=== PATIENT | female | born 1980 | race Caucasian/White ===

== ENCOUNTER → 2018-04-16 09:08 | Outpatient (CLI) | payer BC, SELFPAY ==
[2018-04-16 09:52] LABS: HCG Quantitative /Beta subunit < 2.39 mIU/mL
== END ==
PROVIDERS: Family Provider Obstetrics & Gynecology; Visit Provider Obstetrics & Gynecology Reproductive Endocrinology
DX: Z32.00 Encounter for pregnancy test, result unknown (principal)
CPT/HCPCS: 36415; 84702

== ENCOUNTER → 2018-09-21 09:44 | Outpatient (CLI) | payer BC, SELFPAY ==
[2018-09-21 10:29] LABS: Add Manual Diff / Slide Review NO; Basophils Absolute Auto 100 /uL (0-100); Basophils Percent Auto 0.6 % (0-2); Eosinophils Absolute Auto 200 /uL (0-450); Eosinophils Percent Auto 2.4 % (2-4); Hematocrit 42.6 % (36-46); Hemoglobin 14.4 g/dL (12.0-16.0); Lymphocytes Absolute Auto 2400 /uL (1100-4500); Lymphocytes Percent Auto 30.5 % (25-40); Mean Corpuscular HGB Conc 33.8 % (30-36); Mean Corpuscular Hemoglobin 29.9 PG (26-34); Mean Corpuscular Volume 88.4 fL (80-100); Monocytes Absolute Auto 500 /uL (0-900); Monocytes Percent Auto 6.4 % (3-14); Neutrophils Absolute Auto 4700 /uL (1500-7000); Neutrophils Percent Auto 60.1 % (50-75); Platelet Count 242 X10^3/uL (150-400); Red Blood Cell Count 4.82 X10^6/uL (4.0-5.2); White Blood Cell Count 7.8 X10^3/uL (4.5-11.0)
[2018-09-21 11:12] LABS: Alanine Aminotransferase 88 IU/L (9-52); Albumin 4.9 g/dL (3.5-5.0); Albumin Globulin Ratio 1.7 (1.0-2.8); Alkaline Phosphatase 91 U/L (38-126); Aspartate Aminotransferase 45 IU/L (14-36); BUN Creatinine Ratio 12.9 (6-22); Bilirubin Total 0.5 mg/dL (0.2-1.3); Blood Urea Nitrogen 9 mg/dL (7-17); Calcium 9.6 mg/dL (8.4-10.2); Carbon Dioxide 29 mmol/L (22-32); Chloride 101 mmol/L (98-107); Cholesterol 112 mg/dL (140-199); Estimated Glomerular Filt Rate > 60.0 mL/min (>60); Globulin 2.9 g/dL (1.7-4.1); Glucose 98 mg/dL (70-100); HDL Cholesterol 58 mg/dL (40-60); HEMOLYSIS < 15 (0-50); LDL Cholesterol Calculated 46 mg/dL (<100); Potassium 4.5 mmol/L (3.4-5.1); Sodium 138 mmol/L (137-145); Total Protein 7.8 g/dL (6.3-8.2); Triglycerides 42 mg/dL (35-150)
[2018-09-21 11:31] LABS: TSH w/ Reflex to FT4 1.42 uIU/mL (0.47-4.68)
[2018-09-21 11:32] LABS: Hemoglobin A1C% w Est Avg Glu 5.6 % (4.0-6.0)
== END ==
PROVIDERS: Family Provider Obstetrics & Gynecology; PCP Family Medicine; Visit Provider Family Medicine
DX: N97.9 Female infertility, unspecified (principal); K76.0 Fatty (change of) liver, not elsewhere classified; E78.6 Lipoprotein deficiency; Z83.3 Family history of diabetes mellitus
CPT/HCPCS: 36415; 80053; 80061; 83036; 84443; 85025

== ENCOUNTER → 2018-10-18 12:24 | Outpatient (CLI) | payer BC, SELFPAY ==
[2018-10-18 13:03] LABS: Add Manual Diff / Slide Review NO; Basophils Absolute Auto 0 /uL (0-100); Basophils Percent Auto 0.6 % (0-2); Eosinophils Absolute Auto 100 /uL (0-450); Eosinophils Percent Auto 1.8 % (2-4); Hematocrit 44.8 % (36-46); Hemoglobin 14.6 g/dL (12.0-16.0); Lymphocytes Absolute Auto 2500 /uL (1100-4500); Lymphocytes Percent Auto 31.4 % (25-40); Mean Corpuscular HGB Conc 32.6 % (30-36); Mean Corpuscular Hemoglobin 29.4 PG (26-34); Mean Corpuscular Volume 90.3 fL (80-100); Monocytes Absolute Auto 600 /uL (0-900); Monocytes Percent Auto 7.4 % (3-14); Neutrophils Absolute Auto 4600 /uL (1500-7000); Neutrophils Percent Auto 58.8 % (50-75); Platelet Count 255 X10^3/uL (150-400); Red Blood Cell Count 4.97 X10^6/uL (4.0-5.2); Red Cell Distribution Width 14.2 % (11.6-14.8); White Blood Cell Count 7.9 X10^3/uL (4.5-11.0)
[2018-10-18 13:15] LABS: Alanine Aminotransferase 67 IU/L (9-52); Albumin 4.7 g/dL (3.5-5.0); Albumin Globulin Ratio 1.8 (1.0-2.8); Alkaline Phosphatase 71 U/L (38-126); Aspartate Aminotransferase 36 IU/L (14-36); BUN Creatinine Ratio 15.7 (6-22); Bilirubin Total 0.6 mg/dL (0.2-1.3); Blood Urea Nitrogen 11 mg/dL (7-17); Calcium 9.8 mg/dL (8.4-10.2); Carbon Dioxide 28 mmol/L (22-32); Chloride 100 mmol/L (98-107); Estimated Glomerular Filt Rate > 60.0 mL/min (>60); Globulin 2.6 g/dL (1.7-4.1); Glucose 82 mg/dL (70-100); HEMOLYSIS < 15 (0-50); Potassium 4.4 mmol/L (3.4-5.1); Sodium 138 mmol/L (137-145); Total Protein 7.3 g/dL (6.3-8.2)
== END ==
PROVIDERS: PCP Family Medicine; Visit Provider Hospitalist
DX: R10.9 Unspecified abdominal pain (principal)
CPT/HCPCS: 36415; 80053; 85025

== ENCOUNTER → 2018-10-20 09:06 | Outpatient (CLI) | payer BC, SELFPAY ==
--- NOTE | 2018-10-20 09:08 | DI.US.S_ITS ---
PROCEDURE: US ABDOMEN COMPLETE INDICATIONS: abdominal pain TECHNIQUE: Real-time scanning was performed of the abdominal and retroperitoneal organs, with image documentation. COMPARISON: None. FINDINGS: Liver: The liver is normal in size with a smooth margin. Moderate diffuse hyperechogenicity in the hepatic parenchyma diffusely. No focal mass Gallbladder: The gallbladder contains a 1.4 cm mobile stone. Normal gallbladder wall thickness of 2.0 mm. No pericholecystic fluid or Jensen's sign. Biliary ducts: Intrahepatic bile ducts are non-dilated. Extrahepatic bile duct caliber measures 4.4 mm. Normal is 6-7 mm or less in diameter, or 10 mm or less post-cholecystectomy. Pancreas: Visualized portions of the pancreas are sonographically normal. Spleen: Spleen is normal in size and homogeneous in echotexture. Kidneys: Kidneys are normal in size and echotexture. Right kidney measures 11.1 cm long; left kidney measures 10.4 cm long. No hydronephrosis or nephrolithiasis. No solid masses. Aorta: Visualized aorta is normal in caliber at less than 3 cm. Iliacs: Proximal common iliac arteries are normal in caliber at less than 2.5 cm. IVC: Intrahepatic inferior vena cava is patent. Miscellaneous: No free abdominal fluid. IMPRESSION: 1. Cholelithiasis without sonographic evidence of acute cholecystitis. 2. Moderate hepatic steatosis or other intrinsic liver disease. Correlate with LFTs. Dictated by: Margoth Morel M.D. on 10/20/2018 at 12:26 Approved by: Margoth Morel M.D. on 10/20/2018 at 12:29
== END ==
PROVIDERS: PCP Family Medicine; Visit Provider Hospitalist
DX: R10.9 Unspecified abdominal pain (principal); K80.20 Calculus of gallbladder without cholecystitis without obstruction
CPT/HCPCS: 76700

== ENCOUNTER → 2020-03-21 13:26 | Outpatient (CLI) | payer BC, SELFPAY ==
--- NOTE | 2020-03-21 13:27 | DI.US.S_ITS ---
LIMITED ULTRASOUND OF LEFT BREAST AND AXILLA: 03/21/2020 CLINICAL: Abnormal mammogram. No prior exams were available for comparison. Color flow and real-time ultrasound of the left breast 7-9 o'clock, and axilla regions were performed. Arias scale images of the real-time examination were reviewed. There is a 1.5 cm x 1 cm x 0.4 cm wider than tall oval mass with indistinct, slightly angulated margins in the left breast at 9 o'clock middle depth 2 cm from the nipple. This oval mass is hypoechoic with internal echoes and no posterior acoustic shadowing or enhancement. This correlates with mammography findings. Color flow imaging demonstrates that there is no vascularity present. No significant abnormalities were seen sonographically in the left axilla. IMPRESSION: SUSPICIOUS OF MALIGNANCY The 1.5 cm x 1 cm x 0.4 cm wider than tall oval mass in the left breast is at a low suspicion for malignancy. An ultrasound guided biopsy is recommended. Findings and recommendations were discussed with the patient by Dr. Guaman during today's examination. This exam was interpreted at Station ID: [id number]. Electronically Signed By: Anthony Goss M.D. aty/:03/21/2020 17:15:07 copy to: Adriana Centeno copy to: Awilda Acosta letter sent: Biopsy Required Ultrasound BI-RADS: 4a Low suspicion for malignancy
--- NOTE | 2020-03-21 13:27 | DI.US.S_ITS ---
LIMITED ULTRASOUND OF RIGHT BREAST AND AXILLA: 03/21/2020 CLINICAL: Patient returns for additional imaging over a suspected mass in the right breast. Follow up from addtional views. Comparison is made to exam dated: 03/21/2020 [facility]. Color flow and real-time ultrasound of the right breast 9-10 o'clock, and axilla regions were performed. Arias scale images of the real-time examination were reviewed. There is a 1.4 cm x 1.6 cm x 1 cm wider than tall oval mass with a circumscribed margin in the right breast at 9 o'clock anterior depth 3 cm from the nipple. This oval mass is hypoechoic. This correlates with mammography findings. Color flow imaging demonstrates that there is no vascularity present. No significant abnormalities were seen sonographically in the right axilla. IMPRESSION: PROBABLY BENIGN The 1.4 cm x 1.6 cm x 1 cm wider than tall oval mass in the right breast resembles a fibroadenoma and is probably benign. However, patient is currently undergoing treatment and medications for upcoming in vitro fertilization and anticipated . For this reason, an ultrasound guided right breast biopsy is recommended in lieu of imaging surveillance. Findings and recommendations were discussed with the patient by Dr. Guaman during today's examination. This exam was interpreted at Station ID: [id number]. Electronically Signed By: Anthony Goss M.D. aty/:03/21/2020 17:21:41 copy to: Adriana Centeno copy to: Awilda Acosta letter sent: Biopsy Required Ultrasound BI-RADS: 3 Probably benign
--- NOTE | 2020-03-21 13:27 | DI.MG.S_ITS ---
BILATERAL DIGITAL DIAGNOSTIC MAMMOGRAM 3D/2D: 03/21/2020 CLINICAL: Baseline exam. Rash on breast, prolonged breast tenderness. No prior exams were available for comparison. The tissue of both breasts is heterogeneously dense. This may lower the sensitivity of mammography. There is a 1.6 cm oval equal density mass in the right breast at 9 o'clock anterior depth. There is a 1 cm oval equal density focal asymmetry with an obscured margin in the left breast at 9 o'clock middle depth. No other significant masses or calcifications are seen in either breast. IMPRESSION: INCOMPLETE: NEEDS ADDITIONAL IMAGING EVALUATION The 1.6 cm oval equal density mass in the right breast at 9 o'clock anterior depth resembles a cyst, a solid mass, or a fibroadenoma and is indeterminate. An ultrasound is recommended. The 1 cm oval equal density focal asymmetry in the left breast at 9 o'clock middle depth resembles a cyst or a fibroadenoma and is indeterminate. An ultrasound is recommended. The recommended ultrasound is scheduled to immediately follow this exam. This exam was interpreted at Station ID: [id number]. NOTE: For mammograms, a report in lay terms will be sent to the patient. Approximately 15% of breast malignancies will not be visualized mammographically. In the management of a palpable breast mass, a negative mammogram must not discourage biopsy of a clinically suspicious lesion. Electronically Signed By: Anthony Goss M.D. aty/:03/21/2020 17:11:34 ACR BI-RADS Category 0: Incomplete [id number]
== END ==
PROVIDERS: PCP Family Medicine; Referring Provider Nurse Practitioner; Visit Provider Nurse Practitioner
DX: R92.8 Other abnormal and inconclusive findings on diagnostic imaging of breast (principal); N63.25 Unspecified lump in the left breast, overlapping quadrants; N63.15 Unspecified lump in the right breast, overlapping quadrants; N64.4 Mastodynia; Q83.9 Congenital malformation of breast, unspecified
CPT/HCPCS: 76642; 77066; G0279

== ENCOUNTER → 2020-05-02 09:42 | Outpatient (CLI) | payer BC, SELFPAY ==
--- NOTE | 2020-05-02 | PATH_ITS ---
[facility] Accession Number: [id number] . 01 Material submitted: . PART A: breast - RIGHT BREAST PART B: breast - LEFT BREAST . 01 Clinical history: . BILATERAL BREAST MASS . 02 Diagnosis: A. Right Breast, Core Needle Biopsy: Benign breast tissue. Please see comment. Negative for atypical hyperplasia, in situ and invasive carcinoma. . B. Left Breast, Core Needle Biopsy: Fibroadenoma. Negative for atypical hyperplasia, in situ or invasive carcinoma. . [facility] 05/06/2020 1634 Local . 02 Comment: A. The right breast core needle biopsy shows focally dense fibrous breast stroma with a few admixed adipocytes suggestive of, but not diagnostic for benign hamartoma. . Additional deeper levels were examined on both blocks A and B. . 02 Electronically signed: . Sonal Crisostomo MD, Pathologist NPI- [id number] . 01 Gross description: . A. Received in formalin, labeled R breast, are five fragments of rausch adipose tissue ranging in size from 1.2 x 0.3 x 0.3 cm to 0.3 x 0.2 x 0.2 cm. All five fragments are entirely submitted in cassette A1. B. Received in formalin, labeled L breast, are seven fragments of rausch adipose tissue measuring 0.8 x 0.3 x 0.3 cm to 0.3 x 0.3 x 0.2 cm. All seven fragments are entirely submitted in cassette B1. . Collection date and time is listed as 05/02/2020 at 12:06 p.m. The total fixation time is approximately 20 hours. ([id number]) /FRR 05/03/2020 1515 Local . 02 Pathologist provided ICD-10: D24.2 . 02 CPT . 358080, 185114 Performed at: 01 [facility] [address] [place] [address], [place], [place] [id number] MD Tashi Gomez MD Phone: [phone] Performed at: 02 [facility] [place] [address] [place], [place] [id number] MD Sonal Crisostomo MD Phone: [phone]
--- NOTE | 2020-05-02 | DI.MG.S_ITS ---
BILATERAL DIGITAL DIAGNOSTIC MAMMOGRAM POST-NEEDLE BIOPSY: 05/02/2020 CLINICAL: Bilateral breast mass. Comparison is made to exam dated: 03/21/2020 [facility]. The tissue of both breasts is heterogeneously dense. This may lower the sensitivity of mammography. Biopsy clips are in expected positions. IMPRESSION: Biopsy clips in expected positions. This exam was interpreted at Station ID: [id number]. NOTE: For mammograms, a report in lay terms will be sent to the patient. Approximately 15% of breast malignancies will not be visualized mammographically. In the management of a palpable breast mass, a negative mammogram must not discourage biopsy of a clinically suspicious lesion. Electronically Signed By: Ishan Valencia M.D. fx/:05/02/2020 13:35:58 copy to: Adriana Centeno copy to: Awilda Acosta ACR BI-RADS Category n/a
--- NOTE | 2020-05-02 09:44 | DI.US.S_ITS ---
ULTRASOUND GUIDED BIOPSY RIGHT BREAST USING VACUUM DEVICE WITH POST MAMMOGRAPHIC AND ULTRASOUND IMAGIN05/02/2020 CLINICAL: Right breast mass biopsy. PATIENT CONSENT: Risks (minor bleeding, infection, vasovagal reaction and repeat procedure), benefits and alternatives were explained to the patient and written informed consent was obtained. Correlation is made to exams dated: 05/02/2020 mammogram, 03/21/2020 ultrasound, and 03/21/2020 mammogram - [facility]. An ultrasound guided biopsy using real-time ultrasound was performed for the round mass located in the right breast at 9 o'clock middle depth. This was described on the previous ultrasound report. The skin was prepped in the usual manner. Local anesthetic was administered to the access site. The abnormality was approached from the lateral aspect. A 13 gauge biopsy needle was placed adjacent to the abnormality under ultrasound guidance. Once the needle was documented to be in the correct location, five specimens were obtained using the Mammotome biopsy system. Post procedure mammographic and ultrasound imaging demonstrates the clip at the targeted area. The specimens were sent to the laboratory for pathological analysis. IMPRESSION: ULTRASOUND GUIDED BIOPSY BENIGN Ultrasound guided biopsy of the mass in the right breast middle depth was successful. Pathology indicates benign breast tissue, focal dense fibrous tissue including a few adipocytes suggestive of benign hamartoma. Pathology results are concordant with imaging findings. A follow-up right ultrasound in 6 months is recommended. Results and recommendations will be communicated to the ordering provider's office. This exam was interpreted at Station ID: [id number]. Ishan Morel M.D. fx,krg/:05/07/2020 13:44:25 copy to: Adriana Centeno copy to: Awilda Acosta
--- NOTE | 2020-05-02 09:44 | DI.US.S_ITS ---
ULTRASOUND GUIDED BIOPSY LEFT BREAST USING VACUUM DEVICE WITH POST MAMMOGRAPHIC AND ULTRASOUND IMAGIN05/02/2020 CLINICAL: Left breast mass biopsy. PATIENT CONSENT: Risks (minor bleeding, infection, vasovagal reaction and repeat procedure), benefits and alternatives were explained to the patient and written informed consent was obtained. Correlation is made to exams dated: 05/02/2020 mammogram, 03/21/2020 ultrasound, and 03/21/2020 mammogram - [facility]. An ultrasound guided biopsy using real-time ultrasound was performed for the oval mass located in the left breast at 9 o'clock posterior depth. This was described on the previous ultrasound report. The skin was prepped in the usual manner. Local anesthetic was administered to the access site. The abnormality was approached from the medial aspect. A 13 gauge biopsy needle was placed adjacent to the abnormality under ultrasound guidance. Once the needle was documented to be in the correct location, five specimens were obtained using the Mammotome biopsy system. Post procedure mammographic and ultrasound imaging demonstrates the clip at the targeted area. The specimens were sent to the laboratory for pathological analysis. IMPRESSION: ULTRASOUND GUIDED BIOPSY BENIGN Ultrasound guided biopsy of the mass in the left breast posterior depth was successful. Pathology indicates benign fibroadenoma (FA). Pathology results are concordant with imaging findings. Return to annual mammogram screening schedule for the left breast is recommended. This exam was interpreted at Station ID: [id number]. Ishan Morel M.D. fxkrg/:05/07/2020 18:36:13 copy to: Adriana Centeno copy to: Awilda Acosta
== END ==
PROVIDERS: PCP Family Medicine; Referring Provider Family Medicine; Visit Provider Family Medicine
DX: D24.2 Benign neoplasm of left breast (principal); N63.15 Unspecified lump in the right breast, overlapping quadrants
CPT/HCPCS: 19083; 77066

== ENCOUNTER → 2020-11-05 15:42 | Outpatient (CLI) | payer BC, SELFPAY ==
--- NOTE | 2020-11-05 | DI.RAD.S_ITS ---
PROCEDURE: XR THORACIC SPINE 2V INDICATIONS: CERVICAL, LUMBAR AND THORACIC PAIN TECHNIQUE: 2 views of the thoracic spine were acquired. COMPARISON: None. FINDINGS: Bones: No fractures or dislocations. No suspicious bony lesions. Twelve pairs of ribs are noted, and appear intact where visualized. Soft tissues: No paravertebral stripe thickening. IMPRESSION: No trauma found, source of current thoracic spine pain is not identified Dictated by: Arnoldo Guaman M.D. on 11/05/2020 at 16:13 Approved by: Arnoldo Guaman M.D. on 11/05/2020 at 16:13
--- NOTE | 2020-11-05 | DI.RAD.S_ITS ---
PROCEDURE: XR CERVICAL SPINE 2V OR 3V INDICATIONS: CERVICAL, LUMBAR AND THORACIC PAIN TECHNIQUE: 2 view(s) of the cervical spine were acquired. COMPARISON: None. FINDINGS: Bones: No fractures or dislocations to the T1 level. The lateral masses of C1 appear intact on the odontoid view. No suspicious bony lesions. Mild C5-6 degenerative disc height reduction, without subluxation. Soft tissues: No prevertebral soft tissue swelling. IMPRESSION: Mild degenerative disc disease C5-6 without prior trauma or subluxation. Dictated by: Arnoldo Guaman M.D. on 11/05/2020 at 16:13 Approved by: Arnoldo Guaman M.D. on 11/05/2020 at 16:14
--- NOTE | 2020-11-05 | DI.RAD.S_ITS ---
PROCEDURE: XR LUMBAR SPINE 2-3V INDICATIONS: CERVICAL, LUMBAR AND THORACIC PAIN TECHNIQUE: 3 views of the lumbar spine were acquired. COMPARISON: [facility], , -SPINE 2-3 VIEWS, 06/13/2014, 16:10. FINDINGS: Bones: 5 [id number] vertebrae are present. There is normal bony alignment. No vertebral body compression fractures. No suspicious bony lesions. There is a moderately severe degree of degenerative disc disease at L5-S1 with additional facet osteoarthritis superimposed posteriorly. No subluxation is associated. No prior trauma found. Soft tissues: Overlying bowel gas pattern is normal. No suspicious soft tissue calcifications. IMPRESSION: Moderately severe degenerative disc disease and facet osteoarthritis at L5-S1, but more superiorly the lumbosacral spine appears excellent. There is potential for significant spinal and foraminal stenosis at L5-S1. Dictated by: Arnoldo Guaman M.D. on 11/05/2020 at 17:16 Approved by: Arnoldo Guaman M.D. on 11/05/2020 at 17:17
== END ==
PROVIDERS: PCP Family Medicine; Referring Provider Chiropractor; Visit Provider Chiropractor
DX: M99.01 Segmental and somatic dysfunction of cervical region (principal); M99.02 Segmental and somatic dysfunction of thoracic region; M99.03 Segmental and somatic dysfunction of lumbar region; M99.04 Segmental and somatic dysfunction of sacral region; M99.05 Segmental and somatic dysfunction of pelvic region; M54.5 Low back pain; M50.322 Other cervical disc degeneration at C5-C6 level; M51.37 Other intervertebral disc degeneration, lumbosacral region; M47.817 Spondylosis without myelopathy or radiculopathy, lumbosacral region
CPT/HCPCS: 72040; 72070; 72100

== ENCOUNTER → 2021-03-31 11:17 | Outpatient (CLI) | payer BC, SELFPAY ==
--- NOTE | 2021-03-31 11:18 | DI.US.S_ITS ---
PROCEDURE: US PELVIC COMPLETE INDICATIONS: PELVIC PAIN TECHNIQUE: Real-time scanning was performed of the pelvic organs, with image documentation. Additional endovaginal scanning was necessary due to incomplete visualization of the adnexal and endometrial structures by transabdominal scanning. COMPARISON: [facility], US, PELVIC COMPLETE, 06/16/2016, 14:01. FINDINGS: Uterus: Anteverted, measures 8 x 5.2 x 4.4 cm, and exhibits mildly heterogeneous echotexture. The endometrium measures 8.4 mm in combined thickness. Hypoechoic lesions within the cervix, compatible with nabothian cysts. A round, predominantly isoechoic lesion is seen in the cervix , which contains punctate echogenic foci and measures up to 10.9 mm. Ovaries: The right ovary measures 2.5 x 1.5 x 2.1 cm. The left ovary measures 3.6 x 2.9 x 2.4 cm and demonstrates normal flow. An anechoic lesion is seen, measuring up to 2.4 cm, compatible with a dominant follicle/cyst. Other: No pathologic free abdominal or pelvic fluid. IMPRESSION: 1. Simple appearing left ovarian cyst. 2. Round isoechoic lesion in the cervix as detailed above, concerning for a mass. Dictated by: Juan Yi M.D. on 03/31/2021 at 11:57 Approved by: Juan Yi M.D. on 03/31/2021 at 12:06
== END ==
PROVIDERS: PCP Family Medicine; Referring Provider Obstetrics & Gynecology; Visit Provider Obstetrics & Gynecology
DX: R10.2 Pelvic and perineal pain (principal); N83.202 Unspecified ovarian cyst, left side; N88.9 Noninflammatory disorder of cervix uteri, unspecified
CPT/HCPCS: 76830; 76856

== ENCOUNTER 2021-09-05 01:12 | Emergency (ER) | payer BC, SELFPAY ==
[2021-09-05 01:15] VITALS: BP 167/90; PULSE 84; RESP 20; TEMP 36.6; O2SAT 96; BMI 34.3
--- NOTE | 2021-09-05 01:27 | ED.ABDPAIN ---
HPI - Abdominal Pain General Chief Complaint: Abdominal Pain Stated Complaint: Constant abd pain today/chills/nausea today Time Seen by Provider: 09/05/21 01:26 Source: patient Mode of arrival: Ambulatory Limitations: no limitations History of Present Illness HPI narrative: This is a 41-year-old female comes emergency department with complaint of epigastric and right upper quadrant pain sudden onset after eating food. Patient states started about 930 this evening. It has been persistent and not improving. She has had 4 episodes in the past the 1st time she was seen in the emergency department told she had gallstones. The other episodes have either not been is intense or have resolved fairly quickly. She denies any fevers she has felt a little chilled. She has had nausea but no vomiting. She states she typically has nausea about a week before an episode occurs. She has had nausea about a week before this episode has occurred. She has had normal bowel movements no diarrhea constipation. No black or bloody stools. Denies dysuria, urgency or frequency. She is currently on her menses but no changes to this. No vaginal discharge. She has had fallopian tube removed for ectopic but denies any other medical issues. No other prior surgeries. Former smoker. No alcohol, no illicit. She is accompanied by her mother this evening. Related Data Previous Rx's Medication Instructions Recorded meloxicam 7.5 mg tablet 7.5 mg PO BID PRN #20 tab 09/05/21 ondansetron 4 mg disintegrating 4 mg PO Q6H PRN #10 tab 09/05/21 tablet Allergies Allergy/AdvReac Type Severity Reaction Status Date / Time hydroxyzine [HYDROXYZINE] Allergy Severe HALLUCINATI Verified 06/24/21 09:24 ONS Review of Systems Review of Systems ROS Unobtainable: All systems reviewed & are unremarkable except as noted in HPI and below Patient History Medical History (Updated 09/05/21 @ 02:37 by Martha Santoyo DO) Cervical spine disease Chronic back pain (~2011) Eczema Infertility (~2012) Painful menstrual periods Post traumatic stress disorder (PTSD) Surgical History Anesthesia Status post bilateral salpingo-oophorectomy (BSO) (~2006) Family History Grandmother Gallbladder attack Social History marital status: number of children: 0 household members: spouse lives independently: Yes occupational status: employed Smoking Status: Former smoker alcohol intake: current substance use type: does not use Smoking Status: Former smoker Substance Use Type: does not use Exam Narrative Exam Narrative: GENERAL: Alert and oriented x three, female in [id number] distress. HEENT: Head normocephalic, atraumatic, EOMI, pupils reactive, face symmetric, moist mucous membranes NECK: Supple, full range of motion CARDIOVASCULAR: Regular rate and rhythm without murmurs, rubs or gallops. RESPIRATORY: Breath sounds equal bilaterally, no wheezes rales or rhonchi. ABDOMEN: Soft, positive for epigastric and right upper quadrant tenderness. Nondistended. Normoactive bowel sounds all 4 quadrants. No guarding or rebound, rigidity, no mass. No hernia appreciated. : No CVA tenderness EXTREMITIES: Normal range of motion, no clubbing or edema. Neurovascularly intact NEUROLOGICAL: Cranial nerves II through XII grossly intact. Moving all extremities SKIN: Warm, dry, no petechiae, no rashes or lesions. Initial Vital Signs Initial Vital Signs: Vital Signs Temperature 97.9 F 09/05/21 01:15 Pulse Rate 84 09/05/21 01:15 Respiratory Rate 20 09/05/21 01:15 Blood Pressure 167/90 H 09/05/21 01:15 Pulse Oximetry 96 09/05/21 01:15 Course Orders Ordered: ED Orders 09/05/21 01:22 Complete Blood Count AUTO DIFF Stat Comprehensive Metabolic Panel Stat Lipase Stat Partial Thromboplastin Time Stat Test Serum,Qual Stat Prothrombin Time INR Stat 09/05/21 01:26 EKG-12 Lead Stat 09/05/21 01:44 US abdomen limited Stat 09/05/21 03:10 Urinalysis and Microscopic Stat Urine Culture Stat Ondansetron HCl (Ondansetron 4 Mg/2 Ml Inj) 4 mg IV Q6HR PRN PRN Reason: Nausea And Vomiting Last Admin: 09/05/21 02:07 Dose: 4 mg Documented by: CSIEDLE Discontinued Medications Hydrocodone Bitart/Acetaminophen (Hydrocodone/Acet 5/325 Prepack) 1 bottle MISC SEEINSTR ONE Stop: 09/05/21 03:46 Last Admin: 09/05/21 03:55 Dose: 1 bottle Documented by: Ketorolac Tromethamine (Ketorolac 30 Mg/Ml Vial) 15 mg IV NOW ONE Stop: 09/05/21 01:45 Last Admin: 09/05/21 02:07 Dose: 15 mg Documented by: RICK Ondansetron HCl (Ondansetron 4 Mg Odt Prepack) 1 bottle MISC SEEINSTR ONE Stop: 09/05/21 03:46 Last Admin: 09/05/21 03:55 Dose: 1 bottle Documented by: Reevaluation(s) Reevaluation #1: Patient is feeling improved after medications. Labs do not show major abnormalities, shows a large gallstone stuck in the neck. Urine does not show any infection. Negative . Time: 15:10 Reevaluation #2: Patient continues to feel improved. Reviewed her findings today. Offered General surgery consultation for possible cholecystectomy urgently versus emergently. Patient has of gall bladder stone stuck in the neck with normal LFTs but is tender, afebrile with no clear signs of infection. Patient defers and would like to follow-up outpatient. She states she is quite busy but we discussed return precautions the short term Zofran, pain medication patient given referral for General surgery which patient states she will follow-up with. Time: 03:49 Vital Signs Vital signs: Vital Signs - 8 hr 09/05/21 01:15 Temperature 97.9 F Pulse Rate 84 Respiratory Rate 20 Blood Pressure 167/90 H Pulse Oximetry 96 MDM - Abdominal Pain Lab Data Result diagrams: 09/05/21 01:22 09/05/21 01:22 Labs: Lab Results 09/05/21 09/05/21 09/05/21 Range/Units 01: 01:22 01:22 WBC 10.1 (4.5-11.0) X10^3/uL RBC 4.58 (4.0-5.2) X10^6/uL Hgb 13.6 (12.0-16.0) g/dL Hct 39.9 (36-46) % MCV 87.2 (80-100) fL MCH 29.8 (26-34) PG MCHC 34.2 (30-36) % RDW 13.4 (11.6-14.8) % Plt Count 248 (150-400) X10^3/uL Neut % (Auto) 63.7 (50-75) % Lymph % (Auto) 26.7 (25-40) % [place] % (Auto) 6.5 (3-14) % Eos % (Auto) 2.5 (2-4) % Baso % (Auto) 0.6 (0-2) % Neut # (Auto) 6400 (3711-9978) /uL Lymph # (Auto) 2700 (4397-0808) /uL Vermilion # (Auto) 700 (0-900) /uL Eos # (Auto) 300 (0-450) /uL Baso # (Auto) 100 (0-100) /uL PT 9.8 L (10.1-12.7) SECONDS INR 0.9 (0.9-1.3) APTT 32 (26.4-36.2) SECONDS Sodium 139 (137-145) mmol/L Potassium 3.7 (3.4-5.1) mmol/L Chloride 105 (98-107) mmol/L Carbon Dioxide 25 (22-32) mmol/L BUN 17 (7-17) mg/dL Creatinine 1.00 (0.52-1.04) mg/dL Estimated GFR > 60.0 (>60) mL/min BUN/Creatinine Ratio 17.0 (6-22) Glucose 115 H (70-100) mg/dL Calcium 9.1 (8.4-10.2) mg/dL Total Bilirubin 0.5 (0.2-1.3) mg/dL AST 36 (14-36) IU/L ALT 54 H (<35) IU/L Alkaline Phosphatase 89 (38-126) U/L Total Protein 7.6 (6.3-8.2) g/dL Albumin 4.6 (3.5-5.0) g/dL Globulin 3.0 (1.7-4.1) g/dL Albumin/Globulin Ratio 1.5 (1.0-2.8) Lipase 97 (23-300) U/L Serum , Qual (Negative) Urine Color Urine Appearance Urine pH (4.5-8.0) Ur Specific [place] (1.000-1.035) Urine Protein (Negative) Urine Glucose (UA) (Negative) g/dL Urine Ketones (NEGATIVE) Urine Occult Blood (Negative) Urine Nitrate (Negative) Urine Bilirubin (NEGATIVE) Urine Urobilinogen (0.2) E.U./dL Ur Leukocyte Esterase (NEGATIVE) Urine RBC (0-5/HPF) Urine WBC (0-5/HPF) Ur Squamous Epith Cells (0-5/HPF) Urine Bacteria (None) Ur Culture Indicated? 09/05/21 09/05/21 Range/Units 01: 03:10 WBC (4.5-11.0) X10^3/uL RBC (4.0-5.2) X10^6/uL Hgb (12.0-16.0) g/dL Hct (36-46) % MCV (80-100) fL MCH (26-34) PG MCHC (30-36) % RDW (11.6-14.8) % Plt Count (150-400) X10^3/uL Neut % (Auto) (50-75) % Lymph % (Auto) (25-40) % Vermilion % (Auto) (3-14) % Eos % (Auto) (2-4) % Baso % (Auto) (0-2) % Neut # (Auto) (6248-6051) /uL Lymph # (Auto) (5731-8258) /uL Vermilion # (Auto) (0-900) /uL Eos # (Auto) (0-450) /uL Baso # (Auto) (0-100) /uL PT (10.1-12.7) SECONDS INR (0.9-1.3) APTT (26.4-36.2) SECONDS Sodium (137-145) mmol/L Potassium (3.4-5.1) mmol/L Chloride (98-107) mmol/L Carbon Dioxide (22-32) mmol/L BUN (7-17) mg/dL Creatinine (0.52-1.04) mg/dL Estimated GFR (>60) mL/min BUN/Creatinine Ratio (6-22) Glucose (70-100) mg/dL Calcium (8.4-10.2) mg/dL Total Bilirubin (0.2-1.3) mg/dL AST (14-36) IU/L ALT (<35) IU/L Alkaline Phosphatase (38-126) U/L Total Protein (6.3-8.2) g/dL Albumin (3.5-5.0) g/dL Globulin (1.7-4.1) g/dL Albumin/Globulin Ratio (1.0-2.8) Lipase (23-300) U/L Serum , Qual Negative (Negative) Urine Color Red Urine Appearance Cloudy Urine pH 5.0 (4.5-8.0) Ur Specific [place] 1.025 (1.000-1.035) Urine Protein 2+ H (Negative) Urine Glucose (UA) Negative (Negative) g/dL Urine Ketones 1+ H (NEGATIVE) Urine Occult Blood 3+ H (Negative) Urine Nitrate Negative (Negative) Urine Bilirubin Negative (NEGATIVE) Urine Urobilinogen 0.2 (0.2) E.U./dL Ur Leukocyte Esterase Trace H (NEGATIVE) Urine RBC >100/hpf H (0-5/HPF) Urine WBC 0-1/hpf (0-5/HPF) Ur Squamous Epith Cells 1-5 /hpf (0-5/HPF) Urine Bacteria Few (2-10) H (None) Ur Culture Indicated? Specimen cultured Imaging Data US - abdomen: Radiologist's Impression: prelim large gallstone stuck in the neck of the gallbladder. Over-read report cholelithiasis with nonmobile stone at the neck of the gallbladder. No wall thickening or pericholecystic fluid but positive sonographic Jensen sign. Common bile duct is not optimally visualized but is normal in diameter. Liver enlarged measuring 21.3 cm. No intrahepatic ductal dilation or ascites. Visualized portions of pancreas are unremarkable. MDM Narrative Medical decision making narrative: This is a 41-year-old female comes emergency department with acute onset of right upper quadrant epigastric pain. Patient has had similar symptoms in the past been told she had gallstones had suspect this was the cause. Patient has had nausea but no vomiting. No fevers. She is tender in right upper quadrant exam found have a large gallstone which appears to be stuck in the neck of the gallbladder. LFTs are normal. She had significant improvement in pain with Toradol. Patient does show a nonverbal wall stuck in the neck of the gallbladder with positive sonographic Jensen's but no thickening or pericholecystic fluid. Patient does have some hepatomegaly. Discussed with patient she elects to return home at this time but with plan for follow-up with surgery. She defers go to the should be issue being to evaluate for removal tonight or in the morning. Reviewed patient's findings with her, return precautions and all questions answered. Discharge Plan Departure Patient Disposition: Home Clinical Impression: Cholelithiasis Instructions: DI for Gallstones Activity Restrictions/Additional Instructions: Follow-up with general surgery for surgical removal of your gallbladder. Please call for an appointment on Tuesday morning. Your gallbladder today shows large stone which appears to be blocking the neck. You may take Tylenol up to 1000 mg every 8 hours. You may take meloxicam 1 tablet every 12 hours as needed for pain. You may take Zofran 1 tablet every 6 hours as needed. Prescription sent to [facility] in [place]. Please return for fevers, rapidly worsening symptoms, persistent vomiting, lightheadedness or passing out, black or bloody stools or other new or concerning symptoms. Prescriptions: New ondansetron 4 mg tablet,disintegrating 4 mg PO Q6H PRN (Reason: nausea and vomiting) Qty: 10 0RF meloxicam 7.5 mg tablet 7.5 mg PO BID PRN (Reason: pain) Qty: 20 0RF Referrals: Lindsey Rogers MD [Physician] - Awilda Sánchez DO [Primary Care Provider] -
[2021-09-05 01:38] LABS: Add Manual Diff / Slide Review NO; Basophils Absolute Auto 100 /uL (0-100); Basophils Percent Auto 0.6 % (0-2); Eosinophils Absolute Auto 300 /uL (0-450); Eosinophils Percent Auto 2.5 % (2-4); Hematocrit 39.9 % (36-46); Hemoglobin 13.6 g/dL (12.0-16.0); Lymphocytes Absolute Auto 2700 /uL (1100-4500); Lymphocytes Percent Auto 26.7 % (25-40); Mean Corpuscular HGB Conc 34.2 % (30-36); Mean Corpuscular Hemoglobin 29.8 PG (26-34); Mean Corpuscular Volume 87.2 fL (80-100); Monocytes Absolute Auto 700 /uL (0-900); Monocytes Percent Auto 6.5 % (3-14); Neutrophils Absolute Auto 6400 /uL (1500-7000); Neutrophils Percent Auto 63.7 % (50-75); Platelet Count 248 X10^3/uL (150-400); Red Blood Cell Count 4.58 X10^6/uL (4.0-5.2); Red Cell Distribution Width 13.4 % (11.6-14.8); White Blood Cell Count 10.1 X10^3/uL (4.5-11.0)
[2021-09-05 01:43] LABS: INR 0.9 (0.9-1.3); Prothrombin Time 9.8 SECONDS (10.1-12.7)
--- NOTE | 2021-09-05 01:44 | DI.US.S_ITS ---
PROCEDURE: US ABDOMEN LIMITED INDICATIONS: epigastric, RUQ pain, +n TECHNIQUE: Real-time focused scanning was performed of the abdomen, with image documentation. COMPARISON: [facility], US, US ABDOMEN COMPLETE, 10/20/2018, 10:08. FINDINGS: The liver demonstrates enlarged size. The liver demonstrates generalized mildly increased echogenicity. This decreases ultrasound sensitivity for detection of hepatic masses. There is a 1.8 cm gallstone seen within the gallbladder neck. The gallbladder wall is not thickened, measuring 3 mm or less. No specific pericholecystic fluid is seen. The sonographic Jensen sign is positive. There is no biliary dilatation, the common bile duct measures 5 mm. No significant pancreatic abnormality is seen on these images. IMPRESSION: There is a 1.8 cm gallstone seen within the gallbladder neck. The sonographic Jensen sign is positive. Findings are suspicious for cholecystitis. However, no additional sonographic signs of cholecystitis are seen. No biliary dilatation. Enlarged, fatty liver. Note: No significant discrepancy from the preliminary report. Dictated by: Randall Mcpherson M.D. on 09/05/2021 at 8:15 Approved by: Randall Mcpherson M.D. on 09/05/2021 at 8:16
[2021-09-05 01:45] LABS: PTT Partial Thromboplastin Tim 32 SECONDS (26.4-36.2)
[2021-09-05 01:48] LABS: Alanine Aminotransferase 54 IU/L (<35); Albumin 4.6 g/dL (3.5-5.0); Albumin Globulin Ratio 1.5 (1.0-2.8); Alkaline Phosphatase 89 U/L (38-126); Aspartate Aminotransferase 36 IU/L (14-36); Bilirubin Total 0.5 mg/dL (0.2-1.3); Blood Urea Nitrogen 17 mg/dL (7-17); Calcium 9.1 mg/dL (8.4-10.2); Carbon Dioxide 25 mmol/L (22-32); Chloride 105 mmol/L (98-107); Estimated Glomerular Filt Rate > 60.0 mL/min (>60); Glucose 115 mg/dL (70-100); HEMOLYSIS < 15 (0-50); Lipase 97 U/L (23-300); Potassium 3.7 mmol/L (3.4-5.1); Sodium 139 mmol/L (137-145); Total Protein 7.6 g/dL (6.3-8.2)
[2021-09-05] MEDS: ONDANSETRON 4 MG/2 ML INJ IV (02:07)
[2021-09-05] MEDS: KETOROLAC 30 MG/ML VIAL 15 MG IV (02:07)
[2021-09-05 02:30] LABS: Pregnancy Test Serum,Qual Negative (Negative)
[2021-09-05 03:19] LABS: Appearance Urine UA CLOUDY; Bilirubin Urine UA NEGATIVE (NEGATIVE); Color Urine UA RED; Glucose Urine UA NEGATIVE (Negative); Ketones Urine UA 1+ (NEGATIVE); Leukocyte Esterase Urine UA TRACE (NEGATIVE); Nitrite Urine UA NEGATIVE (Negative); Occult Blood Urine UA 3+ (Negative); Protein Urine UA 2+ (Negative); Specific Gravity Urine UA 1.025 (1.000-1.035); Urobilinogen Urine UA 0.2 E.U./dL (0.2)
[2021-09-05 03:36] LABS: Bacteria Urine Few (2-10); Culture Indicated Urine Specimen Cultured; RBC Urine >100/HPF (0-5/HPF); Squamous Epithelial Cell Urine 1-5 /HPF (0-5/HPF); WBC Urine 0-1/HPF (0-5/HPF)
[2021-09-05] MEDS: ONDANSETRON 4 MG ODT PREPACK 1 BOTTLE MISC (03:55)
[2021-09-05] MEDS: HYDROCODONE/ACET 5/325 PREPACK 1 BOTTLE MISC (03:55)
[2021-09-05 04:01] VITALS: BP 145/82; PULSE 80; RESP 17; O2SAT 97
== END 2021-09-05 04:06 | disposition home or self-care (01) ==
PROVIDERS: Emergency Provider Emergency Medicine; PCP Family Medicine
DX: K80.20 Calculus of gallbladder without cholecystitis without obstruction (principal); Z87.891 Personal history of nicotine dependence
CPT/HCPCS: 36415; 76705; 80053; 81001; 83690; 84703; 85025; 85610; 85730; 87086; 87147; 93005; 96374; 96375; 99284; J1885; J2405

== ENCOUNTER → 2021-12-07 10:40 | Outpatient (CLI) | payer BC, SELFPAY | PROVIDERS: Family Provider Family Medicine; PCP Family Medicine; Referring Provider Family Medicine; Visit Provider Family Medicine ==

== ENCOUNTER 2022-06-29 06:42 | Day surgery (SDC) | payer BC, SELFPAY ==
[2022-06-23 08:12] VITALS: BMI 35.2
[2022-06-29] VITALS (7 sets, daily range): BP systolic 132–159; BP diastolic 74–110; PULSE 75–95; RESP 12–20; TEMP 36.2–36.8; O2SAT 89–100; BMI 35.2
--- NOTE | 2022-06-29 | PATH_ITS ---
[facility] Accession Number: [id number] No. of containers..01 Tissue . 01 Material submitted: . gallbladder - GALLBLADDER . 01 Diagnosis: Gallbladder, Cholecystectomy: Chronic cholecystitis and cholelithiasis. MRV 07/05/2022 1405 Local . 01 Electronically signed: . Shannan Scott MD, Pathologist NPI- [id number] . 01 Gross description: . The specimen is received in formalin labeled with the patient's name, , and gallbladder, and consists of an intact gallbladder measuring 6.2 x 2.5 x 1.7 cm. The serosa is smooth and congested while the hepatic surface is rough and unremarkable. The cystic duct is received closed with a clamp, is inked blue, and no pericystic lymph node is identified. The lumen contains dark green mucoid bile and a single dark brown roughened calculus measuring 2.3 cm in greatest dimension grossly obstructing the cystic duct. The mucosa is green-rausch and velvety with focally denuded areas adjacent to the aforementioned calculus. No pinpoint yellow areas of discoloration, polyps or lesions are identified. The alvarez average 0.3 cm thick. [employer] sections to include the cystic duct margin and full-thickness sections are submitted in cassette A1. ([id number]) /MRV 06/30/2022 1045 Local . 01 Pathologist provided ICD-10: K80.20 . 01 CPT . 158426 Specimen Comment: A courtesy copy of this report has been sent to [phone] Performed at: [address] [facility], [place], [place] [id number] MD Tashi Gomez MD Phone: [phone]
--- NOTE | 2022-06-29 | DI.RAD.S_ITS ---
PROCEDURE: XR CHOLANGIOGRAM OPERATIVE INDICATIONS: CHOLANGIOGRAM COMPARISON: None. FINDINGS: Biliary ducts: The surgeon injected contrast into the biliary ducts after cannulation of the cystic duct stump. Visualized intra- and extrahepatic bile ducts are normal in caliber, without strictures. No intraluminal filling defects to suggest retained ductal stones or sludge. No evidence for iatrogenic ductal injury. Duodenum: Contrast flows promptly through the sphincter of Oddi into the duodenum, which appears normal in caliber. IMPRESSION: Normal intraoperative cholangiogram. Dictated by: Kate Mena MD, PhD on 06/29/2022 at 13:13 Approved by: Kate Mena MD, PhD on 06/29/2022 at 13:13
--- NOTE | 2022-06-29 07:14 | SUR.OPER ---
Supine on padded OR bed, head on pillow, safety belt at thigh, left arm padded and tucked at side. Right arm secured on padded arm board <90 degrees abduction. Legs uncrossed. Padded footboard in place. Tape over blanket to secure lower legs.
--- NOTE | 2022-06-29 07:42 | PM.PREOP ---
Pre-operative Note COVID-19 COVID-19 status: Not tested Interval Note History & Physical reviewed/Exam performed by Physician: Yes Changes to H&P: No ASA Class (for procedural sedation): II
[2022-06-29] MEDS: LACTATED RINGERS 1,000 ML 42 ML IV (07:47)
[2022-06-29] MEDS: CEFAZOLIN 2 GM/100 ML PREMIX 100 ML IV (08:02)
[2022-06-29] MEDS: IOPAMIDOL 50 ML VIAL INJ (08:18)
[2022-06-29] MEDS: BUPIVACAINE 0.5% W/ EPI (PF) 30 ML VIAL INJ (08:18)
--- NOTE | 2022-06-29 09:31 | P.OP_ITS ---
Operative Date/Time/Diagnoses Date of procedure: 06/29/22 Time of procedure: 09:31 Pre-op diagnosis: Cholelithiasis Post-op diagnosis: same Procedure & Clinicians Procedure: Laparoscopic cholecystectomy with intraoperative cholangiogram Same procedure as scheduled: Yes Surgeon: Bob Carmen Operative Notes Procedure in detail: The patient was given preoperative antibiotic. The patient was brought to the operating room, placed on the table in the supine position. General endotracheal anesthesia was induced. The abdomen was prepped and draped. A time-out was performed. We made a 1 cm infraumbilical incision. We dissected down to the base of the umbilical stalk using cautery. We grasped the umbilical stalk with a Booker clamp to elevate the abdominal wall. We scored the fascia in the midline with cautery 1 cm. We pierced the peritoneum with a Peon clamp. The Momo port was placed and the abdomen was insufflated to 15 mmHg. A 5 mm 30 degree laparoscopic was inserted. There was no evidence of any injury from the entry. Next, we placed 5 mm ports in the subxiphoid position and right upper quadrant at the midclavicular line and anterior axillary line. The patient was then positioned in reverse Trendelenburg and the table was tilted to the left. The gallbladder was grasped at the dome and retracted cephalad. The liver was somewhat enlarged rectum retraction difficult but we are eventually able to expose the gallbladder. There were some adhesions of mesenteric tissue to the body of the gallbladder which were carefully dissected with cautery to allow full retraction of the gallbladder. We then dissected the cystic structures with a combination of hook cautery and blunt dissection. We obtained a critical view. Next, a cholangiogram was performed using the 6 Amharic ureteral catheter. There was good flow of contrast into the duodenum and liver with no obvious filling defects. The cystic duct common duct junction was well visualized. We then placed hemoclips on the cystic duct and artery and divided the cystic duct and artery sharply between the clips. The gallbladder was then dissected off the liver and placed in a specimen retrieval bag. We irrigated the right upper quadrant until all the aspirate returned clear. We then removed the 5 mm ports under direct vision we removed the Momo port. We then injected some local into the fascia and closed the fascia with 3 interrupted 0 Vicryl sutures. The skin incisions were closed with 4 Monocryl and Steri-Strips were applied. Band-Aids were applied over the Steri-Strips. EBL: 10 mL Specimen: Gallbladder Post-operative Condition: stable Disposition: PACU
[2022-06-29] MEDS: ONDANSETRON 4 MG/2 ML INJ IV ×2 (09:54→10:51)
[2022-06-29] MEDS: fentaNYL 100 MCG/2 ML INJ IV (09:56)
[2022-06-29] MEDS: OXYCODONE IR 5 MG TABLET PO (10:11)
--- NOTE | 2022-06-29 10:54 | SUR.PHASEII ---
Patient reported nausea. Zofran and Quease provided.
== END 2022-06-29 10:45 | disposition home or self-care (01) ==
PROVIDERS: Family Provider Family Medicine; PCP Family Medicine; Referring Provider Surgery; Visit Provider Surgery
PROC: 0FT44ZZ Resection of Gallbladder, Percutaneous Endoscopic Approach (ICD-10-PCS; CPT 47562; principal; 2022-06-29 07:45)
DX: K80.10 Calculus of gallbladder with chronic cholecystitis without obstruction (principal)
CPT/HCPCS: 47563; 74300; 81025; J0690; J1100; J1885; J2250; J2405; J2704; J3010

== ENCOUNTER 2022-11-23 18:00 | Emergency (ER) | payer BC, SELFPAY ==
[2022-11-23 18:03] VITALS: BP 153/93; PULSE 102; RESP 20; TEMP 37.1; O2SAT 97; BMI 34.3
--- NOTE | 2022-11-23 18:10 | DI.RAD.S_ITS ---
PROCEDURE: XR CHEST 2V INDICATIONS: cough, fever, chills, tachy TECHNIQUE: 2 views of the chest were acquired. COMPARISON: None. FINDINGS: Surgical changes and devices: None. Lungs and pleura: Lungs are clear. No pleural effusions or pneumothorax. Mediastinum: Mediastinal contours are normal. Heart size is normal. Bones and chest wall: No suspicious bony abnormalities. Soft tissues appear unremarkable. IMPRESSION: No acute cardiopulmonary disease. Dictated by: Ishan Valencia M.D. on 11/23/2022 at 18:38 Approved by: Ishan Valencia M.D. on 11/23/2022 at 18:38
--- NOTE | 2022-11-23 18:15 | ED_ITS ---
HPI - General Adult General Chief complaint: Upper Respiratory Symptoms Stated complaint: coughing/sleepy/body achs/ -covid/ Time Seen by Provider: 11/23/22 18:09 Source: patient Mode of arrival: Ambulatory History of Present Illness HPI narrative: 42-year-old female former smoker without chronic medical history presents with significant other and a chief complaint of feeling generally unwell for a few weeks but definitely worse over the past few days with fever, chills, body aches. She is been nauseated but denies any vomiting. She denies headache or blurred vision but has been a bit dizzy and lightheaded because of presumably a poor appetite. Her cough is generally dry and hacking, she denies any hemoptysis. She denies chest pain but does admit that on occasion she feels short of breath. She denies abdominal pain, constipation or diarrhea. She denies dysuria or urgency but might have increasing frequency. She denies v aginal bleeding or discharge. She has no pain or swelling and lower extremities. About 1 month ago she traveled to and from [place]. She denies any history of blood clot. Related Data Home Medications Medication Instructions Recorded Confirmed ibuprofen See Rx Instructions .Route .COMPLEX 06/29/22 07/14/22 Previous Rx's Medication Instructions Recorded benzonatate 200 mg capsule 200 mg PO BID PRN cough #20 caps 11/23/22 oseltamivir 75 mg capsule (Tamiflu) 75 mg PO BID 5 days #10 caps 11/23/22 Allergies Allergy/AdvReac Type Severity Reaction Status Date / Time hydroxyzine [HYDROXYZINE] Allergy Severe HALLUCINATI Verified 07/14/22 10:14 ONS latex Allergy Severe Blister Verified 07/14/22 10:14 Review of Systems Review of Systems Narrative: GENERAL: See HPI HEENT: Denies sinus pain, ear pain, sore throat, difficulty swallowing, dizziness. RESPIRATORY: See HPI CARDIOVASCULAR: Denies chest pain, palpitations, orthopnea, edema, GASTROINTESTINAL: See HPI : See HPI MUSCULOSKELETAL: denies weakness, joint pain, or bony pain SKIN: Denies rash, skin lesions, or other NEUROLOGIC: Denies weakness, headache, numbness, change in speech, confusion, seizures, incoordination. PSYCHIATRIC: No concerning psychosocial issues. 12 point review of systems is negative except for those stated above Patient History Medical History (Updated 11/23/22 @ 20:34 by Carloz Smith DO) Cervical spine disease Chronic back pain (~2011) Eczema Infertility (~2012) Painful menstrual periods Post traumatic stress disorder (PTSD) Surgical History Anesthesia Status post bilateral salpingo-oophorectomy (BSO) (~2006) Family History Grandmother Gallbladder attack Social History marital status: number of children: 0 household members: spouse lives independently: Yes occupational status: employed Smoking Status: Former smoker alcohol intake: current substance use type: does not use Smoking Status: Former smoker alcohol intake frequency: holidays/special occasions only Substance Use Type: does not use Exam Narrative Exam Narrative: GENERAL: [42] year old patient appears stated age. Well-developed patient, in mild distress. HEAD: Atraumatic. Normocephalic. EYES: Pupils equal round and reactive. Extraocular motions intact. No scleral icterus. No injection or drainage. ENT: Nose without bleeding, purulent drainage. Throat without erythema, tonsillar hypertrophy or exudate. Airway patent. NECK: Trachea midline. Non tender CARDIOVASCULAR: Tachycardic but regular rhythm without murmurs, gallops, or rubs. RESPIRATORY: Clear to auscultation. Breath sounds equal bilaterally. No wheezes, rales, or rhonchi. GASTROINTESTINAL: Abdomen soft, non-tender, nondistended. EXTREMITIES: No edema or joint tenderness. BACK: Nontender without deformity or crepitance. No flank tenderness. NEURO: AOx3. SKIN: No rash or erythema of visible areas Initial Vital Signs Initial Vital Signs: Vital Signs Temperature 98.8 F 11/23/22 18:03 Pulse Rate 102 H 11/23/22 18:03 Respiratory Rate 20 11/23/22 18:03 Blood Pressure 153/93 H 11/23/22 18:03 Pulse Oximetry 97 11/23/22 18:03 Oxygen Delivery Method Room Air 11/23/22 18:03 Course Orders Ordered: ED Orders 11/23/22 18:56 CT angio chest PE protocol Stat 11/23/22 20:13 Blood Culture Stat Discontinued Medications Lactated Ringer's (Lactated Ringers) 1,000 mls @ 1,000 mls/hr IV BOLUS ONE Stop: 11/23/22 19:08 Last Infusion: 11/23/22 19:35 Dose: 0 mls/hr Documented By: Admin: 11/23/22 18:25 Dose: 1,000 mls/hr Documented By: LASHA Ketorolac Tromethamine (Ketorolac 30 Mg/Ml Vial) 15 mg IV NOW ONE Stop: 11/23/22 18:51 Last Admin: 11/23/22 18:53 Dose: 15 mg Documented By: LASHA Vital Signs Vital signs: Vital Signs - 8 hr 11/23/22 20:39 Pulse Rate 96 H Respiratory Rate 18 Blood Pressure 165/87 H Pulse Oximetry 96 Oxygen Delivery Method Room Air Medical Decision Making Lab Data 11/23/22 18:15 11/23/22 18:15 Labs: Lab Results 11/23/22 11/23/22 11/23/22 Range/Units 18:05 18:15 18:15 WBC 4.6 (4.5-11.0) X10^3/uL RBC 4.77 (4.0-5.2) X10^6/uL Hgb 14.0 (12.0-16.0) g/dL Hct 41.8 (36-46) % MCV 87.6 (80-100) fL MCH 29.4 (26-34) PG MCHC 33.6 (30-36) % RDW 13.9 (11.6-14.8) % Plt Count 148 L (150-400) X10^3/uL Neut % (Auto) 76.2 H (50-75) % Lymph % (Auto) 12.5 L (25-40) % [place] % (Auto) 9.9 (3-14) % Eos % (Auto) 0.7 L (2-4) % Baso % (Auto) 0.7 (0-2) % Neut # (Auto) 3500 (4506-7489) /uL Lymph # (Auto) 600 L (1698-6770) /uL [place] # (Auto) 500 (0-900) /uL Eos # (Auto) 0 (0-450) /uL Baso # (Auto) 0 (0-100) /uL D-Dimer 1359 H (<500) ng/ml Sodium (137-145) mmol/L Potassium (3.4-5.1) mmol/L Chloride (98-107) mmol/L Carbon Dioxide (22-32) mmol/L BUN (7-17) mg/dL Creatinine (0.52-1.04) mg/dL Estimated GFR (>60) mL/min BUN/Creatinine Ratio (6-22) Glucose (70-100) mg/dL Lactate (0.7-2.1) mmol/L Calcium (8.4-10.2) mg/dL Magnesium (1.6-2.3) mg/dL Total Bilirubin (0.2-1.3) mg/dL AST (14-36) IU/L ALT (<35) IU/L Alkaline Phosphatase (38-126) U/L Total Creatine Kinase (30-135) U/L CK-MB (CK-2) CK-MB (CK-2) Rel Index Troponin I (0.01-0.034) ng/mL NT-Pro-B Natriuret Pep (<125) pg/mL Total Protein (6.3-8.2) g/dL Albumin (3.5-5.0) g/dL Globulin (1.7-4.1) g/dL Albumin/Globulin Ratio (1.0-2.8) Ur Bilirubin Confirm (Negative) Urine RBC (0-5/HPF) Urine WBC (0-5/HPF) Ur Squamous Epith Cells (0-5/HPF) Urine Bacteria (None) Chlamy pneumoniae PCR Not detected (Not Detect) Adenovirus (PCR) Not detected (Not Detect) B. pertussis DNA (PCR) Not detected (Not Detecte) B.parapertussis DNA PCR Not detected (Not Detecte) Coronavirus OC43 (PCR) Not detected (Not Detect) Coronavirus HKU1 (PCR) Not detected (Not Detect) Coronavirus 229E (PCR) Not detected (Not Detect) SARS-CoV-2 (PCR) Not detected (Not Detecte) Coronavirus NL63 (PCR) Not detected (Not Detect) Human Metapneumovir PCR Not detected (Not Detect) Influenza Type A (PCR) Detected H (Not Detect) Influenza Type B (PCR) Not detected (Not Detect) M. pneumoniae (PCR) Not detected (Not Detect) Parainfluenza 1 (PCR) Not detected (Not Detect) Parainfluenza 2 (PCR) Not detected (Not Detect) Parainfluenza 3 (PCR) Not detected (Not Detect) Parainfluenza 4 (PCR) Not detected (Not Detect) RSV (PCR) Not detected (Not Detect) Entero/Rhino (PCR) Not detected (Not Detect) 11/23/22 11/23/22 11/23/22 Range/Units 18:15 18:15 18:35 WBC (4.5-11.0) X10^3/uL RBC (4.0-5.2) X10^6/uL Hgb (12.0-16.0) g/dL Hct (36-46) % MCV (80-100) fL MCH (26-34) PG MCHC (30-36) % RDW (11.6-14.8) % Plt Count (150-400) X10^3/uL Neut % (Auto) (50-75) % Lymph % (Auto) (25-40) % [place] % (Auto) (3-14) % Eos % (Auto) (2-4) % Baso % (Auto) (0-2) % Neut # (Auto) (9483-4734) /uL Lymph # (Auto) (6829-4486) /uL [place] # (Auto) (0-900) /uL Eos # (Auto) (0-450) /uL Baso # (Auto) (0-100) /uL D-Dimer (<500) ng/ml Sodium 137 (137-145) mmol/L Potassium 3.3 L (3.4-5.1) mmol/L Chloride 100 (98-107) mmol/L Carbon Dioxide 27 (22-32) mmol/L BUN 8 (7-17) mg/dL Creatinine 0.78 (0.52-1.04) mg/dL Estimated GFR > 60 (>60) mL/min BUN/Creatinine Ratio 10.3 (6-22) Glucose 105 H (70-100) mg/dL Lactate 0.8 (0.7-2.1) mmol/L Calcium 9.0 (8.4-10.2) mg/dL Magnesium 2.0 (1.6-2.3) mg/dL Total Bilirubin 0.6 (0.2-1.3) mg/dL AST 76 H (14-36) IU/L ALT 114 H (<35) IU/L Alkaline Phosphatase 73 (38-126) U/L Total Creatine Kinase 84 (30-135) U/L CK-MB (CK-2) TNP CK-MB (CK-2) Rel Index TNP Troponin I < 0.012 (0.01-0.034) ng/mL NT-Pro-B Natriuret Pep 153 H (<125) pg/mL Total Protein 7.8 (6.3-8.2) g/dL Albumin 4.4 (3.5-5.0) g/dL Globulin 3.4 (1.7-4.1) g/dL Albumin/Globulin Ratio 1.3 (1.0-2.8) Ur Bilirubin Confirm Negative (Negative) Urine RBC (0-5/HPF) Urine WBC (0-5/HPF) Ur Squamous Epith Cells (0-5/HPF) Urine Bacteria (None) Chlamy pneumoniae PCR (Not Detect) Adenovirus (PCR) (Not Detect) B. pertussis DNA (PCR) (Not Detecte) B.parapertussis DNA PCR (Not Detecte) Coronavirus OC43 (PCR) (Not Detect) Coronavirus HKU1 (PCR) (Not Detect) Coronavirus 229E (PCR) (Not Detect) SARS-CoV-2 (PCR) (Not Detecte) Coronavirus NL63 (PCR) (Not Detect) Human Metapneumovir PCR (Not Detect) Influenza Type A (PCR) (Not Detect) Influenza Type B (PCR) (Not Detect) M. pneumoniae (PCR) (Not Detect) Parainfluenza 1 (PCR) (Not Detect) Parainfluenza 2 (PCR) (Not Detect) Parainfluenza 3 (PCR) (Not Detect) Parainfluenza 4 (PCR) (Not Detect) RSV (PCR) (Not Detect) Entero/Rhino (PCR) (Not Detect) 11/23/22 Range/Units 18:35 WBC (4.5-11.0) X10^3/uL RBC (4.0-5.2) X10^6/uL Hgb (12.0-16.0) g/dL Hct (36-46) % MCV (80-100) fL MCH (26-34) PG MCHC (30-36) % RDW (11.6-14.8) % Plt Count (150-400) X10^3/uL Neut % (Auto) (50-75) % Lymph % (Auto) (25-40) % [place] % (Auto) (3-14) % Eos % (Auto) (2-4) % Baso % (Auto) (0-2) % Neut # (Auto) (1325-6574) /uL Lymph # (Auto) (5259-8826) /uL [place] # (Auto) (0-900) /uL Eos # (Auto) (0-450) /uL Baso # (Auto) (0-100) /uL D-Dimer (<500) ng/ml Sodium (137-145) mmol/L Potassium (3.4-5.1) mmol/L Chloride (98-107) mmol/L Carbon Dioxide (22-32) mmol/L BUN (7-17) mg/dL Creatinine (0.52-1.04) mg/dL Estimated GFR (>60) mL/min BUN/Creatinine Ratio (6-22) Glucose (70-100) mg/dL Lactate (0.7-2.1) mmol/L Calcium (8.4-10.2) mg/dL Magnesium (1.6-2.3) mg/dL Total Bilirubin (0.2-1.3) mg/dL AST (14-36) IU/L ALT (<35) IU/L Alkaline Phosphatase (38-126) U/L Total Creatine Kinase (30-135) U/L CK-MB (CK-2) CK-MB (CK-2) Rel Index Troponin I (0.01-0.034) ng/mL NT-Pro-B Natriuret Pep (<125) pg/mL Total Protein (6.3-8.2) g/dL Albumin (3.5-5.0) g/dL Globulin (1.7-4.1) g/dL Albumin/Globulin Ratio (1.0-2.8) Ur Bilirubin Confirm (Negative) Urine RBC >100/hpf H (0-5/HPF) Urine WBC 1-5/hpf (0-5/HPF) Ur Squamous Epith Cells 1-5 /hpf (0-5/HPF) Urine Bacteria None seen (None) Chlamy pneumoniae PCR (Not Detect) Adenovirus (PCR) (Not Detect) B. pertussis DNA (PCR) (Not Detecte) B.parapertussis DNA PCR (Not Detecte) Coronavirus OC43 (PCR) (Not Detect) Coronavirus HKU1 (PCR) (Not Detect) Coronavirus 229E (PCR) (Not Detect) SARS-CoV-2 (PCR) (Not Detecte) Coronavirus NL63 (PCR) (Not Detect) Human Metapneumovir PCR (Not Detect) Influenza Type A (PCR) (Not Detect) Influenza Type B (PCR) (Not Detect) M. pneumoniae (PCR) (Not Detect) Parainfluenza 1 (PCR) (Not Detect) Parainfluenza 2 (PCR) (Not Detect) Parainfluenza 3 (PCR) (Not Detect) Parainfluenza 4 (PCR) (Not Detect) RSV (PCR) (Not Detect) Entero/Rhino (PCR) (Not Detect) Urine Dip Bedside Urine Glucose Negative Bedside Urine Bilirubin + 1 Bedside Urine Ketone +++ 80 Urine Specific [place] 1.030 Bedside Urine Occult Blood +++ Bedside Urine pH 5.5 Bedside Urine Protein ++ 100 Bedside Urine Urobilinogen - Negative Bedside Urine Nitrite - Negative Bedside Urine Leukocytes + 70 Esterase Point of care testing: Urine Dip Bedside Urine Glucose Negative Bedside Urine Bilirubin + 1 Bedside Urine Ketone +++ 80 Urine Specific [place] 1.030 Bedside Urine Occult Blood +++ Bedside Urine pH 5.5 Bedside Urine Protein ++ 100 Bedside Urine Urobilinogen - Negative Bedside Urine Nitrite - Negative Bedside Urine Leukocytes + 70 Esterase MDM Narrative Medical decision making narrative: [42] year old patient presents with fever, body aches and cough Multiple etiologies for patient's symptoms considered including, but not limited to: [Pneumonia versus viral upper respiratory infection versus pulmonary embolism versus UTI versus other] Prior Charts reviewed in our EMR Primary Historian: patient Labs reviewed and interpreted by myself: Resp panel notes Flu A, no elevated WBC, no anemia, electrolytes and renal function well within normal. D Dimer critically elevated. Imaging reviewed: CXR without acute findings. CTA shows no PE Patient's symptoms improved over duration of stay with above-stated therapies. No significant work of breathing, no hypoxemia. No evidence of pneumonia or pulmonary embolism. Symptoms very consistent influenza A. Though she is been trouble for about 1 month she had a rapid change a day or 2 ago with fever and body aches hence decision to use Tamiflu. Findings and discharge diagnosis discussed with patient/family followed by verbalization of understanding Return precautions discussed with patient/family whom verbalize understanding of diagnosis and plan Discharge Plan Departure Patient Disposition: Home Clinical Impression: Influenza A Instructions: DI for Influenza -- Adult Activity Restrictions/Additional Instructions: *You have been diagnosed with [influenza A. As we discussed your lab work and CT scan are reassuring and there is no evidence of pneumonia or blood clot. *What to do: *Please continue to take your regular medications as directed. [x ] New medication prescriptions sent to your pharmacy: [[facility] ] [ ] New medication written as a paper prescription [ ] No new medications given *Please follow up with your primary care provider in 2-3 days, call for an appointment. Let them know you were seen in the Emergency Department and that we ask that you be seen in follow up. We will electronically transmit a record of today's note if your PCP is in our system *Return to Emergency Department if you should have any new, worsening or concerning symptoms Prescriptions: New oseltamivir [Tamiflu] 75 mg capsule 75 mg PO BID 5 Days Qty: 10 0RF benzonatate 200 mg capsule 200 mg PO BID PRN (Reason: cough) Qty: 20 0RF No Action ibuprofen See Rx Instructions .ROUTE .COMPLEX Rx Instructions: back pain Referrals: Sonya Guillermo MD [Primary Care Provider] - Stand Alone Forms: Patient Portal/API
[2022-11-23] MEDS: LACTATED RINGERS 1,000 ML 1000 ML IV (18:25)
[2022-11-23 18:26] LABS: Add Manual Diff / Slide Review NO; Basophils Absolute Auto 0 /uL (0-100); Basophils Percent Auto 0.7 % (0-2); Eosinophils Absolute Auto 0 /uL (0-450); Eosinophils Percent Auto 0.7 % (2-4); Hematocrit 41.8 % (36-46); Lymphocytes Absolute Auto 600 /uL (1100-4500); Lymphocytes Percent Auto 12.5 % (25-40); Mean Corpuscular HGB Conc 33.6 % (30-36); Mean Corpuscular Hemoglobin 29.4 PG (26-34); Mean Corpuscular Volume 87.6 fL (80-100); Monocytes Absolute Auto 500 /uL (0-900); Monocytes Percent Auto 9.9 % (3-14); Neutrophils Absolute Auto 3500 /uL (1500-7000); Neutrophils Percent Auto 76.2 % (50-75); Platelet Count 148 X10^3/uL (150-400); Red Blood Cell Count 4.77 X10^6/uL (4.0-5.2); Red Cell Distribution Width 13.9 % (11.6-14.8); White Blood Cell Count 4.6 X10^3/uL (4.5-11.0)
[2022-11-23 18:49] VITALS: TEMP 37.8
[2022-11-23 18:49] LABS: D Dimer 1359 ng/ml (<500)
[2022-11-23 18:50] LABS: Alanine Aminotransferase 114 IU/L (<35); Albumin 4.4 g/dL (3.5-5.0); Albumin Globulin Ratio 1.3 (1.0-2.8); Alkaline Phosphatase 73 U/L (38-126); Aspartate Aminotransferase 76 IU/L (14-36); BUN Creatinine Ratio 10.3 (6-22); Bilirubin Total 0.6 mg/dL (0.2-1.3); Blood Urea Nitrogen 8 mg/dL (7-17); Carbon Dioxide 27 mmol/L (22-32); Chloride 100 mmol/L (98-107); Creatine Kinase 84 U/L (30-135); Estimated Glomerular Filt Rate > 60 mL/min (>60); Globulin 3.4 g/dL (1.7-4.1); Glucose 105 mg/dL (70-100); HEMOLYSIS 18 (0-50); Lactate (Lactic Acid) 0.8 mmol/L (0.7-2.1); Potassium 3.3 mmol/L (3.4-5.1); Sodium 137 mmol/L (137-145); Total Protein 7.8 g/dL (6.3-8.2)
[2022-11-23 18:53] VITALS: TEMP 37.8
[2022-11-23] MEDS: KETOROLAC 30 MG/ML VIAL 15 MG IV (18:53)
--- NOTE | 2022-11-23 18:56 | DI.CT.S_ITS ---
PROCEDURE: CT ANGIO CHEST PE PROTOCOL INDICATIONS: cough, tachycardia, low grade temp, flight, critical dimer TECHNIQUE: After the administration of intravenous contrast, 2 mm thick sections acquired from the pulmonary apices to the posterior costophrenic angles. 3-dimensional maximum intensity projection (MIP) coronal and sagittal reformats were then acquired through the thorax. For radiation dose reduction, the following was used: automated exposure control, adjustment of mA and/or kV according to patient size. COMPARISON: [facility], CR, XR CHEST 2V, 11/23/2022, 18:14. FINDINGS: Image quality: Excellent. Pulmonary arteries: Pulmonary arteries are normal in size, and demonstrate no intraluminal filling defects to suggest central pulmonary embolism. Lungs and pleura: Lungs are clear. No pleural effusions or pneumothorax. Central and peripheral airways are patent. Mediastinum: Heart size is normal, without pericardial effusion. No mediastinal or hilar adenopathy. Thoracic aorta is normal in caliber and enhancement. Esophagus is normal in caliber, without hiatal hernia. Bones and chest wall: No suspicious bony lesions. Ribs and thoracic spine appear intact throughout. Thyroid gland is grossly normal. No axillary or supraclavicular adenopathy. There is a 1.2 cm nodule in the lateral aspect of right breast adjacent to a biopsy clip. A 1 cm nodule is seen in the medial aspect of the left breast adjacent to a surgical clip. Abdomen: Severe hepatic steatosis. IMPRESSION: 1. No evidence for pulmonary embolism. 2. No acute cardiopulmonary process. 3. Bilateral breast nodules. Please correlate with mammographic finding and biopsy results if previously biopsied. 4. Severe hepatic steatosis. Dictated by: Ishan Valencia M.D. on 11/23/2022 at 20:21 Approved by: Ishan Valencia M.D. on 11/23/2022 at 20:25
[2022-11-23 18:58] LABS: Ictotest Urine Negative (Negative)
[2022-11-23 19:01] LABS: NT-proBNP (BNP-Adult 18+) 153 pg/mL (<125); Troponin I < 0.012 ng/mL (0.01-0.034)
[2022-11-23 19:04] LABS: Bacteria Urine None Seen; RBC Urine >100/HPF (0-5/HPF); Squamous Epithelial Cell Urine 1-5 /HPF (0-5/HPF); WBC Urine 1-5/HPF (0-5/HPF)
[2022-11-23 19:07] LABS: Adenovirus Not Detected (Not Detect); B. parapertussis Not Detected (Not Detecte); Bordetella pertussis Not Detected (Not Detecte); Chlamydophila pneumoniae Not Detected (Not Detect); Coronavirus 229E Not Detected (Not Detect); Coronavirus HKU1 Not Detected (Not Detect); Coronavirus NL 63 Not Detected (Not Detect); Coronavirus OC43 Not Detected (Not Detect); Human Metapneumovirus Not Detected (Not Detect); Human Rhinovirus/Enterovirus Not Detected (Not Detect); Influenza A Detected (Not Detect); Influenza B Not Detected (Not Detect); Mycoplasma pneumoniae Not Detected (Not Detect); Parainfluenza Virus 1 Not Detected (Not Detect); Parainfluenza Virus 2 Not Detected (Not Detect); Parainfluenza Virus 3 Not Detected (Not Detect); Parainfluenza Virus 4 Not Detected (Not Detect); Respiratory Syncytial Virus Not Detected (Not Detect); SARS- CoV-2 Not Detected (Not Detecte)
[2022-11-23 20:39] VITALS: BP 165/87; PULSE 96; RESP 18; O2SAT 96
== END 2022-11-23 20:43 | disposition home or self-care (01) ==
PROVIDERS: Emergency Provider Emergency Medicine; Family Provider Family Medicine; PCP Family Medicine
DX: J10.1 Influenza due to other identified influenza virus with other respiratory manifestations (principal); Z20.822 Contact with and (suspected) exposure to COVID-19
CPT/HCPCS: 36415; 71046; 71275; 80053; 81003; 81015; 82550; 83605; 83735; 83880; 84484; 85025; 85379; 87040; 87086; 87633; 96361; 96374; 99284; J1885

== ENCOUNTER → 2023-06-22 17:31 | Outpatient (ROUT) | payer BC, SELFPAY ==
[2023-06-22 18:12] LABS: Influenza A - CEPHEID Flu A NEGATIVE (NEGATIVE); Influenza B - CEPHEID Flu B NEGATIVE (NEGATIVE); Respiratory Syncytial Virus Negative (Negative)
[2023-06-22 18:38] LABS: COVID-19 CEPHEID 4-PLEX PCR Negative (Negative)
== END ==
PROVIDERS: Family Provider Family Medicine; PCP Family Medicine; Visit Provider Family Medicine
DX: R05.1 Acute cough (principal)
CPT/HCPCS: 0241U

== ENCOUNTER → 2024-05-21 11:01 | Outpatient (CLI) | payer BC, SELFPAY ==
--- NOTE | 2024-05-21 11:04 | DI.RAD.S_ITS ---
PROCEDURE: XR CHEST 2V INDICATIONS: CHEST PAIN TECHNIQUE: 2 views of the chest were acquired. COMPARISON: [facility], CR, XR CHEST 2V, 11/23/2022, 18:14. FINDINGS: Surgical changes and devices: None. Lungs and pleura: Lungs are clear. No pleural effusions or pneumothorax. Mediastinum: Mediastinal contours are normal. Heart size is normal. Bones and chest wall: No suspicious bony abnormalities. Soft tissues appear unremarkable. IMPRESSION: No acute cardiopulmonary pathology. Dictated by: John Garces M.D. on 05/21/2024 at 13:43 Approved by: John Garces M.D. on 05/21/2024 at 13:43
== END ==
LOC: RAD 11:02
PROVIDERS: Family Provider Family Medicine; PCP Family Medicine; Referring Provider Family Medicine; Visit Provider Family Medicine
DX: R07.81 Pleurodynia (principal)
CPT/HCPCS: 71046

== ENCOUNTER → 2025-01-08 16:53 | Outpatient (CLI) | payer BC, SELFPAY ==
[2025-01-08 17:58] LABS: Add Manual Diff / Slide Review NO; Hematocrit 43.0 % (36-46); Hemoglobin 14.7 g/dL (12.0-16.0); Lymphocytes Absolute Auto 2800 /uL (1100-4500); Mean Corpuscular HGB Conc 34.2 % (30-36); Mean Corpuscular Hemoglobin 29.9 PG (26-34); Mean Corpuscular Volume 87.6 fL (80-100); Platelet Count 254 X10^3/uL (150-400)
[2025-01-08 19:12] LABS: Alanine Aminotransferase 111 IU/L (<35); Albumin 5.0 g/dL (3.5-5.0); Albumin Globulin Ratio 1.7 (1.0-2.8); Alkaline Phosphatase 100 U/L (38-126); Blood Urea Nitrogen 15 mg/dL (7-17); Calcium 10.1 mg/dL (8.4-10.2); Carbon Dioxide 25 mmol/L (22-32); Chloride 100 mmol/L (98-107); Estimated Glomerular Filt Rate > 60 mL/min (>60); Globulin 2.9 g/dL (1.7-4.1); Glucose 142 mg/dL (70-99); HEMOLYSIS < 15 (0-50); Potassium 4.1 mmol/L (3.4-5.1); Sodium 139 mmol/L (137-145); Total Protein 7.9 g/dL (6.3-8.2)
[2025-01-08 19:45] LABS: Ferritin 64 ng/mL (6-137)
== END ==
PROVIDERS: Family Provider Family Medicine; PCP Family Medicine; Referring Provider Family Medicine; Visit Provider Family Medicine
DX: R79.89 Other specified abnormal findings of blood chemistry (principal)
CPT/HCPCS: 36415; 80053; 82728; 85025; 86038; 86140

== ENCOUNTER → 2025-02-15 19:32 | Outpatient (CLI) | payer BC, SELFPAY ==
--- NOTE | 2025-02-15 19:35 | DI.MRI.S_ITS ---
PROCEDURE: MR ABDOMEN LIVER PROTOCOL INDICATIONS: highly echogenic liver on us TECHNIQUE: Coronal HASTE, axial 2D FLASH in- and [id number]; axial breath-hold T2 FSE. Dynamic axial VIBE during the administration of contrast; post-contrast coronal VIBE or 2D FLASH with fat saturation from the hepatic dome to the iliac crests. Optional diffusion weighted imaging and ADC may be performed. COMPARISON: [facility], [place], US ABDOMEN COMPLETE, 01/29/2025, 8:33. FINDINGS: Image quality: Diagnostic Lower chest: Unremarkable lung bases. Liver: Greater than expected T2 signal in the liver. Greater than expected fat saturation in the liver. Very low signal seen on opposed phase images. Estimated fat fraction is 46%. Gallbladder and biliary system: Gallbladder is not seen. No biliary ductal dilation. Pancreas: No ductal dilation Spleen: Nonenlarged Adrenals: No adenoma identified. Kidneys: No hydronephrosis. No solid renal mass. Vessels and lymph nodes: Main portal vein is patent. No enlarged lymph nodes by size criteria. Bowel and peritoneum: No bowel obstruction. No pathologic ascites. No drainable fluid collection. Body wall: Unremarkable Bones: No aggressive appearing osseous abnormality. IMPRESSION: Severe hepatic steatosis, estimated fat fraction is at least 46%. Degree of steatosis should warrant GI follow-up. No suspicious focal liver lesion. Dictated by: Addison Mac M.D. on 02/15/2025 at 21:23 Approved by: Addison Mac M.D. on 02/15/2025 at 21:30
== END ==
LOC: MRI 19:34
PROVIDERS: Family Provider Family Medicine; PCP Family Medicine; Referring Provider Family Medicine; Visit Provider Family Medicine
DX: K76.0 Fatty (change of) liver, not elsewhere classified (principal); R93.2 Abnormal findings on diagnostic imaging of liver and biliary tract
CPT/HCPCS: 74183; A9579

== ENCOUNTER → 2025-02-20 12:03 | Outpatient (CLI) | payer BC, SELFPAY ==
--- NOTE | 2025-02-20 12:04 | DI.MG.S_ITS ---
MM diagnostic mammo unilat LT, US breast LT limited: 02/20/2025 BI-RADS: 3 CLINICAL: 44-year old female for left diagnostic mammogram and left diagnostic breast ultrasound that is a recall from screening on 01/11/2025. Tyrer-Cuzick lifetime risk of 10.6%. No personal or first-degree family history of breast cancer. The patient had prior bilateral breast biopsies. PRIOR EXAMS 01/11/2025, 05/02/2020, 03/21/2020. MAMMOGRAPHY TECHNIQUE: 2D and 3D (tomosynthesis) digital mammographic views obtained, with additional images as needed for full coverage. Current study was also evaluated with a Computer Aided Detection (CAD) system. ULTRASOUND TECHNIQUE Real-time hanna scale and color doppler imaging of the area of clinical interest was performed with image documentation. Left targeted breast ultrasound of the area of clinical interest and the axilla was performed with image documentation. DENSITY Left: B. There are scattered areas of fibroglandular density. MAMMOGRAPHY FINDINGS Left (finding-1): MLO only, Central, Middle depth, measuring 1.7cm: Correlating with findings on screening mammogram there is a circumscribed, oval, equal- density mass present. Upon further review, this mass was likely present on prior mammograms dating back to 03/21/2020. ULTRASOUND FINDINGS Left (finding-1): Outer at 3:00, 1 cm from nipple, measuring 1.4 x 1.1 x 0.7 cm: Correlating with findings on mammogram there is an oval, hypoechoic mass that is parallel. Doppler shows no vascularity. Left: Axilla: No abnormal lymph nodes are seen in the axilla. IMPRESSION: Left (Mass): Outer at 3:00, 1 cm from nipple, measuring 1.4 x 1.1 x 0.7 cm * Probably Benign. RECOMMENDATIONS Left: Outer at 3:00, 1 cm from nipple * Six month followup with diagnostic ultrasound. COMMENTS: Findings and recommendations were conveyed to the patient during today's evaluation. OVERALL ASSESSMENT CATEGORY BI-RADS-3: Probably Benign. ELECTRONICALLY SIGNED: Keshia Damon M.D. on 02/20/2025 at 03:03:19 PM PT Interpreting Station ID: [id number]
== END ==
PROVIDERS: Family Provider Family Medicine; PCP Family Medicine; Referring Provider Family Medicine; Visit Provider Family Medicine
DX: R92.8 Other abnormal and inconclusive findings on diagnostic imaging of breast (principal); N63.25 Unspecified lump in the left breast, overlapping quadrants
CPT/HCPCS: 76642; 77065; G0279